=== PATIENT | female | born 1940 | race Hispanic/Latino ===

== ENCOUNTER 2018-04-07 09:40 | Emergency (ER) | payer MEDICARE, OTHER ==
[2018-04-07 09:45] VITALS: BMI 28.3
[2018-04-07 09:46] VITALS: RESP 17; TEMP 98.1; O2SAT 96
[2018-04-07] MEDS ORDERED: Piperacillin/Tazobact 3.375 GM in Sodium Chloride 0.9% 100 ML IV STA (10:29)
--- NOTE | 2018-04-07 10:40 | ED PDOC ---
HPI: Skin/Bite Injury Time Seen by Provider: 04/07/18 09:57 Chief Complaint (Nursing): Bite Chief Complaint (Provider): Hand pain History Per: Patient Additional Complaint(s): 78 yo female, PMH of HTN and anxiety, presents to ED for evaluation of pain, swelling, and redness to left hand after she was bit by her sons dog. Pt was trying to take food dish away from dog and he accidentally bit her. No fever or chills. Pt left hand dominant. Past Medical History Reviewed: Historical Data, Nursing Documentation, Vital Signs Vital Signs: Last Vital Signs Temp 98.1 F 04/07/18 09:45 Pulse 102 H 04/07/18 09:45 Resp 17 04/07/18 09:45 BP 174/111 H 04/07/18 09:45 Pulse Ox 96 04/07/18 10:43 - Medical History PMH: Anxiety, Asthma, Depression, HTN Denies: Diabetes, Hepatitis, HIV, Chronic Kidney Disease, Seizures, Sexually Transmitted Disease - Family History Family History: States: Unknown Family Hx - Living Arrangements Living Arrangements: With Family - Social History Current smoker - smoking cessation education provided: No Alcohol: None Drugs: Denies - Immunization History Hx Tetanus Toxoid Vaccination: No Hx Influenza Vaccination: Yes Hx Pneumococcal Vaccination: Yes - Home Medications Home Medications: Ambulatory Orders Medication Instructions Recorded Dicyclomine [Dicyclomine HCl] 10 mg PO Q12 PRN 07/18/15 Fluticasone/Salmeterol 250/50 250 mcg INH DAILY 07/18/15 [Advair Diskus 250/50] Losartan Potassium 25 mg PO DAILY 07/18/15 Metoprolol Succinate [Metoprolol 100 mg PO DAILY 07/18/15 Succinate Xl] Montelukast [Singulair] 10 mg PO DAILY 07/18/15 Multivitamin [Tab-A-Dior] 1 tab PO DAILY 07/18/15 Ondansetron [Zofran Odt] 4 mg PO Q8 PRN #10 odt 07/18/15 Pravastatin Sodium [Pravastatin] 20 mg PO DAILY 07/18/15 Ranitidine Hydrochloride 150 mg PO DAILY 07/18/15 [Ranitidine] amLODIPine [Norvasc] 10 mg PO DAILY 07/18/15 Albuterol Sulfate [Proair Hfa] 0.09 mg IH Q4 PRN 11/08/15 Clonazepam 1 mg PO HS 11/08/15 Doxepin [Sinequan] 25 mg PO DAILY 11/08/15 Ziprasidone HCl 80 mg PO HS 11/08/15 Amoxicillin/Clavulanate [Augmentin 1 tab PO BID #14 tab 04/07/18 875 MG-125 MG] Ibuprofen [Motrin] 600 mg PO Q6 #20 tab 04/07/18 - Allergies Allergies/Adverse Reactions: Allergies Allergy/AdvReac Type Severity Reaction Status Date / Time No Known Allergies Allergy Verified 11/08/15 18:26 Review of Systems ROS Statement: Except As Marked, All Systems Reviewed And Found Negative Musculoskeletal: Positive for: Hand Pain Physical Exam - Reviewed Nursing Documentation Reviewed: Yes Vital Signs Reviewed: Yes - Physical Exam Appears: Positive for: Well, Non-toxic, No Acute Distress Head Exam: Positive for: ATRAUMATIC, NORMAL INSPECTION, NORMOCEPHALIC Skin: Positive for: Normal Color, Warm, DRY Eye Exam: Positive for: EOMI, Normal appearance, PERRL ENT: Positive for: Normal ENT Inspection Neck: Positive for: Normal, Painless ROM Cardiovascular/Chest: Positive for: Regular Rate, Rhythm Respiratory: Positive for: CNT, Normal Breath Sounds Gastrointestinal/Abdominal: Positive for: Normal Exam, Soft Back: Positive for: Normal Inspection Extremity: Positive for: Tenderness, Swelling, Other (left hand (+) scabbed over puncture wound between 1-2nd digits. moderate edme an erythema to hand) Neurologic/Psych: Positive for: Alert, Oriented - Laboratory Results Result Diagrams: 04/07/18 10:50 04/07/18 10:50 - ECG O2 Sat by Pulse Oximetry: 96 Medical Decision Making Medical Decision Making: IV access established and diagnostics ordered Pt aferbile upon arrival HR 102 WBC 10.5 lactate 1.3 Hand XR: IMPRESSION: Question of minimally displaced fracture radial base of 5th proximal phalanx. Please correlate with examination. 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 Pt without any redness, swelling ot pain over 5th. IV Vanco and Zosyn administered. Pt remains afebrile on re-eval, 98.7 F Pt stable for discharge home with oral antibitoics at this time. advised to follow up with PMD and return to ED if at anytime condition worsens. erythema marked by securities underwriter with pen and Pt advised to return if redness or swelling surpasses area of demarcation Disposition - Clinical Impression Clinical Impression: Animal bite wound, Cellulitis - Patient ED Disposition Is Patient to be Admitted: No - Disposition Disposition: Routine/Home Disposition Time: 12:16 Condition: STABLE Prescriptions: Amoxicillin/Clavulanate [Augmentin 875 MG-125 MG] 1 tab PO BID #14 tab Ibuprofen [Motrin] 600 mg PO Q6 #20 tab Instructions: Animal Bites (DC) Forms: [employer] (Ukrainian)
[2018-04-07 11:01] LABS: BASO # 0.1 K/uL (0.0-0.2); BASO % 0.5 % (0.0-2.0); EOS # 0.1 K/uL (0.0-0.7); EOS % 1.4 % (0.0-4.0); HEMOGLOBIN 12.3 g/dL (12.0-16.0); LYMPH # 2.6 K/uL (1.0-4.3); MEAN CELL VOLUME 85.5 fl (81.0-99.0); MEAN CORPUSCULAR HGB CONC 32.8 g/dL (33.0-37.0); MEAN PLATELET VOLUME 7.8 fl (7.2-11.7); MONO # 0.8 K/uL (0.0-0.8); MONO % 8.1 % (0.0-10.0); NEUT # 6.8 K/uL (1.8-7.0); RBC 4.4 Mil/uL (3.80-5.20); RED CELL DISTRIBUTION WIDTH 15.1 % (11.5-14.5); WHITE BLOOD COUNT 10.5 K/uL (4.8-10.8)
[2018-04-07 11:04] LABS: VENOUS BLOOD GAS BASE EXCESS 5.3 mmol/L (0.0-2.0); VENOUS BLOOD GAS PCO2 46 mmHg (40-60); VENOUS BLOOD GAS PO2 34 mm/Hg (30-55); VENOUS BLOOD PH 7.43 (7.32-7.43)
[2018-04-07 11:10] LABS: ALB/GLOB RATIO 1.4 (1.0-2.1); ALBUMIN 4.2 g/dL (3.5-5.0); ALT/SGPT 23 U/L (9-52); AST/SGOT 20 U/L (14-36); BLOOD UREA NITROGEN 17 mg/dl (7-17); CALCIUM 9.4 mg/dL (8.4-10.2); GFR AFRICAN-AMERICAN > 60; GFR NON-AFRICAN AMERICAN > 60
[2018-04-07] MEDS ORDERED: Piperacillin/Tazobact 3.375 gm Inj IVPB ONE (11:10)
--- NOTE | 2018-04-07 11:32 | RAD ---
PROCEDURE: Left Hand Radiographs. HISTORY: pain and swelling s/p dog bite COMPARISON: None. FINDINGS: BONES: Ossific density slightly displaced at the radial base of the 5th proximal phalanx. Possible fracture. Please correlate with exam. No other fracture identified. 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 Osteoarthritis at CMC 1. Remaining joint spaces and articular surfaces are preserved. SOFT TISSUES: Normal. OTHER FINDINGS: None. IMPRESSION: Question of minimally displaced fracture radial base of 5th proximal phalanx. Please correlate with examination. 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
[2018-04-07] MEDS ORDERED: Tdap Vaccine 0.5 ml Vial (10-64 yrs) IM ONE ×2 (12:15→12:31)
[2018-04-07] MEDS ORDERED: Vancomycin 1 g Inj ONE (12:28)
[2018-04-07 14:28] VITALS: BP 148/86; PULSE 86
== END 2018-04-07 15:15 | disposition home or self-care (01) ==
LOC: H.ER 09:40
DX: L03.114 Cellulitis of left upper limb (principal); S61.452A Open bite of left hand, initial encounter; W54.0XXA Bitten by dog, initial encounter; Z86.59 Personal history of other mental and behavioral disorders; I10 Essential (primary) hypertension; J45.909 Unspecified asthma, uncomplicated; Z23 Encounter for immunization
CPT/HCPCS: 73130; 80053; 82803; 85025; 87040; 90471; 90715; 96365; 96366; 96367; 99283; J2543